=== PATIENT | male | born 1940 | race Hispanic/Latino ===

== ENCOUNTER 2021-10-12 06:56 | Day surgery (SDC) | payer OTHER, MEDICARE ==
[~2021-10-12] VITALS: Ht 157.5 cm; Wt 52.2 kg
[~2021-10-12 06:56] MED LIST: 0.9%NACL 1000ML 1,000 ML IV ONE; FOLI0.8T22 PO; MULT-1203 PO; SEVE0.8P3 PO; TAMS-1 PO
[2021-10-12 07:42] VITALS: BP 128/61
[2021-10-12] MEDS ORDERED: PROPOFOL 10 MG/ML 20ML VIAL IV ONE ×2 (09:15)
[2021-10-12 10:00] VITALS: BP 94/34
[2021-10-12 10:08] VITALS: BP 103/74
[2021-10-12 10:15] VITALS: BP 114/57
== END 2021-10-12 10:34 | disposition home or self-care (01) ==
LOC: ENDO 06:56 → DAH 06:56 → ENDO 10:34
PROVIDERS: ATTEND Internal Medicine Gastroenterology
DX: R93.2 Abnormal findings on diagnostic imaging of liver and biliary tract (principal); K83.8 Other specified diseases of biliary tract; Z20.822 Contact with and (suspected) exposure to COVID-19; I10 Essential (primary) hypertension; E78.5 Hyperlipidemia, unspecified; R19.4 Change in bowel habit; Z79.899 Other long term (current) drug therapy; Z98.890 Other specified postprocedural states; Z86.010 Personal history of colon polyps
CPT/HCPCS: 36415; 43237; 43239; 84132; 87635; A4215 ×2; A4221; A4222; A4223; A4606; A4620; A4663; C9803; J2704 ×2; J7030

== ENCOUNTER 2021-12-21 09:22 | Day surgery (SDC) | payer OTHER, MEDICARE ==
[~2021-12-21] VITALS: Ht 157.5 cm; Wt 54.5 kg
[~2021-12-21 09:22] MED LIST changes: -0.9%NACL 1000ML 1,000 ML IV ONE
[2021-12-21] MEDS ORDERED: IOHEXOL-350 50ML VIAL IV ONE (09:55)
[2021-12-21 10:40] VITALS: BP 122/63
[2021-12-21 11:03] LABS: CREATININE 5.9 mg/dL (0.5-1.5); POTASSIUM 5.5 mmol/L (3.5-5.1)
== END 2021-12-21 12:30 | disposition home or self-care (01) ==
LOC: DAH 09:22 → ENDO 09:22
PROVIDERS: ATTEND Internal Medicine Gastroenterology
DX: R93.2 Abnormal findings on diagnostic imaging of liver and biliary tract (principal); Z20.822 Contact with and (suspected) exposure to COVID-19; I12.0 Hypertensive chronic kidney disease with stage 5 chronic kidney disease or end stage renal disease; N18.6 End stage renal disease; E78.5 Hyperlipidemia, unspecified; Z98.890 Other specified postprocedural states; Z86.010 Personal history of colon polyps; Z99.2 Dependence on renal dialysis; Z53.8 Procedure and treatment not carried out for other reasons; Z79.899 Other long term (current) drug therapy
CPT/HCPCS: 36415; 80048; 87635; C9803; Q9967